=== PATIENT | male | born 1995 | race Caucasian/White ===

== ENCOUNTER → 2021-08-10 | Outpatient (CLI) | payer OTHER ==
[2021-08-11 04:51] LABS: African American GFR (CKD) 143.9 (60.0-200.0); Albumin 4.9 g/dL (3.8-4.9); Albumin/Globulin Ratio 1.88 (1.60-3.17); Anion Gap 15.1 mmol/L (4.00-12.00); BUN/Creat Ratio 18.63 Ratio (12.00-20.00); Blood Urea Nitrogen 14.9 mg/dL (9.0-27.0); Calcium 9.8 mg/dL (8.7-10.3); Carbon Dioxide 20.9 mmol/L (21.6-31.8); Globulin 2.6 g/dL (1.6-3.3); Non-African American GFR(CKD) 124.2 (60.0-200.0); Potassium 4.2 mmol/L (3.5-5.5); Total Bilirubin 0.3 mg/dL (0.30-1.20); Total Protein 7.5 g/dL (6.2-8.2)
== END | disposition home or self-care (01) ==
LOC: LABWHC1 16:05
PROVIDERS: ATTEND Psychologist Clinical
DX: Z79.891 Long term (current) use of opiate analgesic (principal)
CPT/HCPCS: 36415; 80053

== ENCOUNTER 2022-01-19 01:54 | Inpatient (IN) | payer OTHER ==
[2022-01-19] MEDS ORDERED: SODIUM CHLORIDE 0.9% 500 ML 500 ML IV STA (02:07)
[2022-01-19] MEDS ORDERED: SODIUM CHLORIDE 0.9% 1,000 ML IV STA ×2 (02:07)
[2022-01-19] MEDS ORDERED: ONDANSETRON 4 MG/2 ML VIAL IVP STA (02:07)
[2022-01-19] MEDS ORDERED: LORazepam 2 MG/ML INJ IV PRN ×2 (02:07)
[2022-01-19] MEDS ORDERED: LORazepam 2 MG/ML INJ IV STA (02:07)
--- NOTE | 2022-01-19 02:07 | ED ---
Alcohol HPI - General Stated Complaint: Vomiting, ETOH withdrawal Time Seen by Provider: 01/19/22 02:06 Source: RN notes reviewed, old records reviewed Mode of arrival: EMS Limitations: no limitations - History of Present Illness Initial Comments: This is a 26-year-old male DF for evaluation. Patient Dese for evaluation regards to persistent nausea vomiting. Patient presents from [place] where he is presenting for alcohol dependence. Patient has been vomiting persistently unable to keep down medications and sent ER for further evaluation management. Sadness patient has no complaints no chest pain shortness breath abdominal pain no fevers MD Complaint: alcohol intoxication, alcohol withdrawal Last Drink: just [employer] -: hour(s) Previous Visits for Alcohol Intoxication?: No Recent Trauma: No Associated Symptoms: nausea, vomiting, depression Treatments Prior to Arrival: none Chronic Alcohol Use: Yes - Related Data Allergies Allergy/AdvReac Type Severity Reaction Status Date / Time No Known Allergies Allergy Verified 01/19/22 02:33 Review of Systems ROS Statement: Those systems with pertinent positive or pertinent negative responses have been documented in the HPI. ROS Other: All systems not noted in ROS Statement are negative. General Exam General appearance: alert, in no apparent distress Head exam: Present: atraumatic, normocephalic, normal inspection Eye exam: Present: normal appearance, PERRL, EOMI. Absent: scleral icterus, conjunctival injection, periorbital swelling ENT exam: Present: normal exam, mucous membranes moist Neck exam: Present: normal inspection. Absent: tenderness, meningismus, lymphadenopathy Respiratory exam: Present: normal lung sounds bilaterally. Absent: respiratory distress, wheezes, rales, rhonchi, stridor Cardiovascular Exam: Present: regular rate, normal rhythm, normal heart sounds. Absent: systolic murmur, diastolic murmur, rubs, gallop, clicks GI/Abdominal exam: Present: soft, normal bowel sounds. Absent: distended, tenderness, guarding, rebound, rigid Extremities exam: Present: normal inspection, full ROM, normal capillary refill. Absent: tenderness, pedal edema, joint swelling, calf tenderness Back exam: Present: normal inspection Neurological exam: Present: alert, oriented X3, CN II-XII intact Psychiatric exam: Present: normal affect, normal mood Skin exam: Present: warm, dry, intact, normal color. Absent: rash Course Vital Signs 01/19/22 01/19/22 01/19/22 02:12 03:30 04:16 Temperature 98.4 F Pulse Rate 77 75 76 Respiratory 19 16 16 Rate Blood Pressure 132/84 124/80 125/75 O2 Sat by Pulse 99 98 98 Oximetry 01/19/22 06:02 Temperature Pulse Rate 76 Respiratory 16 Rate Blood Pressure 127/76 O2 Sat by Pulse 98 Oximetry - Reevaluation(s) Reevaluation #1: 01/19/22 06:19 Medical record is reviewed Reevaluation #2: 01/19/22 06:19 Patient symptoms are improved here in the ER Reevaluation #3: 01/19/22 06:19 Patient informed results and questions answered - Consultations Consultation #1: Spoke with JONATAN to agrees to admit this patient Medical Decision Making - Medical Decision Making 26 male to the emergency department for evaluation persistent nausea vomiting with alcohol withdrawal. Patient symptoms are improving currently resting comfortable with. Patient be admitted for further monitoring - Lab Data Result diagrams: 01/19/22 02:42 01/19/22 02:42 Lab Results 01/19/22 01/19/22 Range/Units 02:42 02:42 WBC 8.8 (3.8-10.6) k/uL RBC 5.23 (4.30-5.90) m/uL Hgb 16.1 (13.0-17.5) gm/dL Hct 45.1 (39.0-53.0) % MCV 86.4 (80.0-100.0) fL MCH 30.9 (25.0-35.0) pg MCHC 35.8 (31.0-37.0) g/dL RDW 12.9 (11.5-15.5) % Plt Count 117 L (150-450) k/uL MPV 6.7 Neutrophils % 82 % Lymphocytes % 11 % Monocytes % 5 % Eosinophils % 1 % Basophils % 1 % Neutrophils # 7.2 (1.3-7.7) k/uL Lymphocytes # 0.9 L (1.0-4.8) k/uL Monocytes # 0.4 (0-1.0) k/uL Eosinophils # 0.1 (0-0.7) k/uL Basophils # 0.1 (0-0.2) k/uL Sodium 135 L (137-145) mmol/L Potassium 3.9 (3.5-5.1) mmol/L Chloride 99 (98-107) mmol/L Carbon Dioxide 24 (22-30) mmol/L Anion Gap 12 mmol/L BUN 12 (9-20) mg/dL Creatinine 0.83 (0.66-1.25) mg/dL Est GFR (CKD-EPI)AfAm >90 (>60 ml/min/1.73 sqM) Est GFR (CKD-EPI)NonAf >90 (>60 ml/min/1.73 sqM) Glucose 124 H (74-99) mg/dL Calcium 9.4 (8.4-10.2) mg/dL Phosphorus 3.6 (2.5-4.5) mg/dL Magnesium 1.7 (1.6-2.3) mg/dL Total Bilirubin 1.5 H (0.2-1.3) mg/dL AST 223 H (17-59) U/L ALT 224 H (4-49) U/L Alkaline Phosphatase 107 (38-126) U/L Total Protein 8.3 H (6.3-8.2) g/dL Albumin 4.9 (3.5-5.0) g/dL Lipase 53 (23-300) U/L Serum Alcohol <10 mg/dL Disposition Clinical Impression: Alcohol withdrawal syndrome, Alcoholic hepatitis, Nausea & vomiting Disposition: ADMITTED IP TO THIS HOSP Condition: Good Is patient prescribed a controlled substance at d/c from ED?: No
[2022-01-19] MEDS ORDERED: THIAMINE 100 MG/ML 2 ML VIAL IM ONE (02:15)
[2022-01-19 02:54] LABS: Basophils # (A) 0.1 k/uL (0-0.2); Basophils % (A) 1 %; Eosinophils # (A) 0.1 k/uL (0-0.7); Eosinophils % (A) 1 %; HCT 45.1 % (39.0-53.0); HGB 16.1 gm/dL (13.0-17.5); Lymphocytes # (A) 0.9 k/uL (1.0-4.8); Lymphocytes % (A) 11 %; MCH 30.9 pg (25.0-35.0); MCHC 35.8 g/dL (31.0-37.0); MCV 86.4 fL (80.0-100.0); Mean Platelet Volume 6.7; Monocytes # (A) 0.4 k/uL (0-1.0); Monocytes % (A) 5 %; Neutrophils # (A) 7.2 k/uL (1.3-7.7); Neutrophils % (A) 82 %; Platelet Count 117 k/uL (150-450); RBC 5.23 m/uL (4.30-5.90); RDW 12.9 % (11.5-15.5); WBC 8.8 k/uL (3.8-10.6)
[2022-01-19 03:04] LABS: ALT 224 U/L (4-49); AST 223 U/L (17-59); African American GFR (CKD) >90 (>60 ml/min/1.73 sqM); Albumin 4.9 g/dL (3.5-5.0); Alcohol <10 mg/dL; Alkaline Phosphatase 107 U/L (38-126); Anion Gap 12 mmol/L; Blood Urea Nitrogen 12 mg/dL (9-20); Calcium 9.4 mg/dL (8.4-10.2); Carbon Dioxide 24 mmol/L (22-30); Chloride 99 mmol/L (98-107); Glucose 124 mg/dL (74-99); Lipase 53 U/L (23-300); Magnesium 1.7 mg/dL (1.6-2.3); Non-African American GFR(CKD) >90 (>60 ml/min/1.73 sqM); Phosphorus 3.6 mg/dL (2.5-4.5); Potassium 3.9 mmol/L (3.5-5.1); Sodium 135 mmol/L (137-145); Total Bilirubin 1.5 mg/dL (0.2-1.3); Total Protein 8.3 g/dL (6.3-8.2)
[2022-01-19] MEDS ORDERED: NALOXONE 0.4 MG/ML 1 ML VIAL IV PRN (03:42)
[2022-01-19] MEDS: SODIUM CHLORIDE 0.9% 1,000 ML IV SCH ×2 (04:16→16:41)
[2022-01-19] MEDS: ONDANSETRON 4 MG/2 ML VIAL IVP PRN (16:41)
[2022-01-19] MEDS: LORazepam 2 MG/ML INJ IV PRN ×2 (16:41→21:57)
--- NOTE | 2022-01-19 17:40 | P.HPIM ---
History of Present Illness H&P Date: 01/19/22 Chief Complaint: Vomiting/EtOH withdrawal 26-year-old male DF for evaluation. Patient Dese for evaluation regards to persistent nausea vomiting. Patient presents from [place] where he is presenting for alcohol dependence. Patient has been vomiting persistently unable to keep down medications and sent ER for further evaluation management. Sadness patient has no complaints no chest pain shortness breath abdominal pain no fevers Workup in ED reveals WBC of 3.8, hemoglobin 16.1, platelet count of 117, sodium 135, potassium 3.9, BUN/creatinine of 12/0.83 and blood glucose of 124 Hepatic function panel reveals AST of 23, ALT of 224, total bilirubin of 1.5; blood alcohol of less than 10 Review of Systems REVIEW OF SYSTEMS: CONSTITUTIONAL: No fever, no malaise, no fatigue. HEENT: No recent visual problems or hearing problems. Denied any sore throat. CARDIOVASCULAR: No chest pain, orthopnea, PND, no palpitations, no syncope. PULMONARY: No shortness of breath, no cough, no hemoptysis. GASTROINTESTINAL: No diarrhea, no nausea, no vomiting, no abdominal pain. NEUROLOGICAL: No headaches, no weakness, no numbness. HEMATOLOGICAL: Denies any bleeding or petechiae. GENITOURINARY: Denies any burning micturition, frequency, or urgency. MUSCULOSKELETAL/RHEUMATOLOGICAL: Denies any joint pain, swelling, or any muscle pain. ENDOCRINE: Denies any polyuria or polydipsia. The rest of the 14-point review of systems is negative. Past Medical History Past Medical History: No Reported History History of Any Multi-Drug Resistant Organisms: None Reported Past Surgical History: No Surgical Hx Reported Past Psychological History: ADD/ADHD, Anxiety, Depression Smoking Status: Current some day smoker Past Alcohol Use History: Daily Additional Past Alcohol Use History / Comment(s): patient went to [facility] 01/18/22, was sent via ems to [facility] for withdrawl symptoms Past Drug Use History: Marijuana - Past Family History Mother Additional Family Medical History / Comment(s): diverticulitis Father Family Medical History: Hypertension Medications and Allergies Home Medications Medication Instructions Recorded Confirmed Type LORazepam [Ativan] 1 - 2 mg PO Q4H PRN 01/19/22 01/19/22 History ondansetron HCL [Zofran] 8 mg PO Q6H PRN 01/19/22 01/19/22 History Allergies Allergy/AdvReac Type Severity Reaction Status Date / Time No Known Allergies Allergy Verified 01/19/22 02:33 Physical Exam Vitals: Vital Signs Temp Pulse Pulse Resp BP BP Pulse Ox 01/19/22 11:13 65 16 129/77 99 01/19/22 06:02 76 16 127/76 98 01/19/22 04:16 76 16 125/75 98 01/19/22 03:30 75 16 124/80 98 01/19/22 02:12 98.4 F 77 19 132/84 99 Intake and Output 01/18/22 01/19/22 01/19/22 22:59 06:59 14:59 Other: # Voids 1 Weight 86.581 kg 86.581 kg - Constitutional General appearance: Present: average body habitus, cooperative, no acute distress - EENT Eyes: Present: anicteric sclerae, EOMI, PERRLA, normal appearance ENT: Present: hearing grossly normal, normal oropharynx Ears: bilateral: normal - Neck Neck: Present: normal ROM. Absent: lymphadenopathy, rigidity, thyromegaly Carotids: negative: bruit present Thyroid: bilateral: normal size, negative: enlarged, nodule - Respiratory Respiratory: bilateral: CTA, negative: rales, rhonchi, wheezing - Cardiovascular Rhythm: regular Heart sounds: normal: S1, S2 Abnormal Heart Sounds: Absent: systolic murmur, diastolic murmur - Gastrointestinal General gastrointestinal: Present: normal bowel sounds, soft. Absent: distend ed, organomegaly, tenderness - Genitourinary Genitourinary Comment(s): deferred - Integumentary Integumentary: Present: normal turgor. Absent: jaundiced, rash, ulcer - Neurologic Neurologic: Present: CNII-XII intact. Absent: focal deficits - Musculoskeletal Musculoskeletal: Present: gait normal, strength equal bilaterally - Psychiatric Psychiatric: Present: A&O x's 3, appropriate affect, intact judgment & insight Results CBC & Chem 7: 01/19/22 02:42 01/19/22 02:42 Labs: Abnormal Lab Results - Last 24 Hours (Table) 01/19/22 01/19/22 Range/Units 02:42 02:42 Plt Count 117 L (150-450) k/uL Lymphocytes # 0.9 L (1.0-4.8) k/uL Sodium 135 L (137-145) mmol/L Glucose 124 H (74-99) mg/dL Total Bilirubin 1.5 H (0.2-1.3) mg/dL AST 223 H (17-59) U/L ALT 224 H (4-49) U/L Total Protein 8.3 H (6.3-8.2) g/dL Thrombosis Risk Factor Assmnt - Choose All That Apply Any of the Below Risk Factors Present?: No Assessment and Plan Assessment: 1. Alcohol withdrawal syndrome; patient reporting intractable nausea and vomiting; we will treat symptomatically; IV fluid hydration; thiamine 100 mg daily; start patient on Protonix 40 mg daily; patient has been placed on CIWA protocol with Ativan 2. Alcoholic hepatitis; we will monitor liver enzymes closely; we will initiate further workup if liver enzymes continue to trend 3. Intractable nausea and vomiting; likely related to EtOH withdrawal; IV fluid hydration as indicated above; Protonix 40 mg IV daily; symptomatic treatment with IV Phenergan DVT prophylaxis; SCDs CODE STATUS; full code
[2022-01-19] MEDS: THIAMINE 100 MG TAB PO SCH (17:46)
[2022-01-20] MEDS ORDERED: IBUPROFEN 400 MG TAB PO PRN (02:05)
[2022-01-20] MEDS: SODIUM CHLORIDE 0.9% 1,000 ML IV SCH ×3 (03:25→13:40)
[2022-01-20] MEDS: ONDANSETRON 4 MG/2 ML VIAL IVP PRN (03:25)
[2022-01-20] MEDS: THIAMINE 100 MG TAB PO SCH ×2 (07:19→17:27)
[2022-01-20 11:56] LABS: African American GFR (CKD) 142.5 (60.0-200.0); Albumin 4.4 g/dL (3.8-4.9); Albumin/Globulin Ratio 1.78 (1.60-3.17); Anion Gap 13.8 mmol/L (10.00-18.00); BUN/Creat Ratio 14.64 Ratio (12.00-20.00); Bilirubin, Conjugated 0.25 mg/dL (0.20-0.40); Bilirubin,Unconjugated 0.68 mg/dL (0.20-1.00); Blood Urea Nitrogen 11.8 mg/dL (9.0-27.0); Calcium 9.1 mg/dL (8.7-10.3); Carbon Dioxide 21.6 mmol/L (20.0-27.5); Globulin 2.5 g/dL (1.6-3.3); Non-African American GFR(CKD) 122.9 (60.0-200.0); Total Bilirubin 0.9 mg/dL (0.30-1.20); Total Protein 6.9 g/dL (6.2-8.2)
[2022-01-20 12:55] LABS: Basophils # (A) 0.01 X 10*3/uL (0.00-0.10); Basophils % (A) 0.2 %; Eosinophils # (A) 0.12 X 10*3/uL (0.04-0.35); Eosinophils % (A) 2.3 %; HCT 44.6 % (39.6-50.0); HGB 15.3 g/dL (13.0-17.0); Immature Grans, Automated 0.2 %; Lymphocytes # (A) 1.27 X 10*3/uL (0.90-5.00); Lymphocytes % (A) 24.3 %; MCH 29.6 pg (27.0-32.0); MCHC 34.3 g/dL (32.0-37.0); MCV 86.3 fL (80.0-97.0); Mean Platelet Volume 10.5 fL (9.5-12.2); Monocytes # (A) 0.54 X 10*3/uL (0.20-1.00); Monocytes % (A) 10.3 %; NRBC Per 100 WBC 0 /100 WBCS (0.0-0.0); Neutrophils # (A) 3.27 X 10*3/uL (1.80-7.70); Neutrophils % (A) 62.7 %; Platelet Count 94 X 10*3/uL (140-440); RBC 5.17 X 10*6/uL (4.40-5.60); RDW 13.2 % (11.5-14.5); WBC 5.22 X 10*3/uL (4.50-10.00)
[2022-01-20 12:56] LABS: RBC Morphology NORMAL
[2022-01-20] MEDS: LORazepam 2 MG/ML INJ IV PRN ×3 (15:40→22:50)
[2022-01-20] MEDS: NICOTINE 14MG/24HR PATCH TRANSDERM SCH (20:29)
[2022-01-21] MEDS: SODIUM CHLORIDE 0.9% 1,000 ML IV SCH ×2 (06:36→10:42)
[2022-01-21] MEDS: THIAMINE 100 MG TAB PO SCH (08:38)
[2022-01-21] MEDS: NICOTINE 14MG/24HR PATCH TRANSDERM SCH (08:41)
[2022-01-21] MEDS: LORazepam 2 MG/ML INJ IV PRN ×2 (08:44→12:44)
[2022-01-21 12:59] LABS: Basophils % (A) 1 %; Eosinophils # (A) 0.1 k/uL (0-0.7); Eosinophils % (A) 2 %; HCT 46.5 % (39.0-53.0); HGB 16.2 gm/dL (13.0-17.5); Lymphocytes # (A) 1.5 k/uL (1.0-4.8); Lymphocytes % (A) 26 %; MCH 30.8 pg (25.0-35.0); MCHC 34.7 g/dL (31.0-37.0); MCV 88.7 fL (80.0-100.0); Mean Platelet Volume 7.7; Monocytes # (A) 0.5 k/uL (0-1.0); Monocytes % (A) 8 %; Neutrophils # (A) 3.5 k/uL (1.3-7.7); Neutrophils % (A) 60 %; Platelet Count 105 k/uL (150-450); RBC 5.24 m/uL (4.30-5.90); RDW 13.8 % (11.5-15.5); WBC 5.9 k/uL (3.8-10.6)
[2022-01-21 13:16] LABS: ALT 204 U/L (4-49); AST 153 U/L (17-59); African American GFR (CKD) >90 (>60 ml/min/1.73 sqM); Albumin 4.7 g/dL (3.5-5.0); Albumin/Globulin Ratio 1.5; Alkaline Phosphatase 83 U/L (38-126); Anion Gap 6 mmol/L; Bilirubin,Unconjugated 0.7 mg/dL (0.0-1.1); Blood Urea Nitrogen 15 mg/dL (9-20); Calcium 9.4 mg/dL (8.4-10.2); Carbon Dioxide 27 mmol/L (22-30); Chloride 105 mmol/L (98-107); Globulin 3.2 g/dL; Glucose 104 mg/dL (74-99); Non-African American GFR(CKD) >90 (>60 ml/min/1.73 sqM); Potassium 4.2 mmol/L (3.5-5.1); Sodium 138 mmol/L (137-145); Total Protein 7.9 g/dL (6.3-8.2)
[2022-01-21 14:18] VITALS: BP 139/80; PULSE 88; RESP 17; TEMP 96.9
--- NOTE | 2022-01-21 15:33 | P.PN ---
Subjective Progress Note Date: 01/20/22 Principal diagnosis: EtOH intoxication/withdrawal 26-year-old male DF for evaluation. Patient Dese for evaluation regards to persistent nausea vomiting. Patient presents from [place] where he is presenting for alcohol dependence. Patient has been vomiting persistently un able to keep down medications and sent ER for further evaluation management. Sadness patient has no complaints no chest pain shortness breath abdominal pain no fevers Workup in ED reveals WBC of 3.8, hemoglobin 16.1, platelet count of 117, sodium 135, potassium 3.9, BUN/creatinine of 12/0.83 and blood glucose of 124 Hepatic function panel reveals AST of 23, ALT of 224, total bilirubin of 1.5; blood alcohol of less than 10 Objective - Vital Signs Vital signs: Vital Signs Temp 98.3 F 01/20/22 07:45 Pulse 90 01/20/22 07:45 Resp 12 01/20/22 07:45 BP 127/75 01/20/22 07:45 Pulse Ox 98 01/20/22 07:45 Intake & Output 01/19/22 01/20/22 01/20/22 18:59 06:59 18:59 Weight 86.581 kg Other: Voiding Method Toilet # Voids 1 3 # Bowel Movements 0 - Exam - Constitutional General appearance: Present: average body habitus, cooperative, no acute dis tress - EENT Eyes: Present: anicteric sclerae, EOMI, PERRLA, normal appearance ENT: Present: hearing grossly normal, normal oropharynx Ears: bilateral: normal - Neck Neck: Present: normal ROM. Absent: lymphadenopathy, rigidity, thyromegaly Carotids: negative: bruit present Thyroid: bilateral: normal size, negative: enlarged, nodule - Respiratory Respiratory: bilateral: CTA, negative: rales, rhonchi, wheezing - Cardiovascular Rhythm: regular Heart sounds: normal: S1, S2 Abnormal Heart Sounds: Absent: systolic murmur, diastolic murmur - Gastrointestinal General gastrointestinal: Present: normal bowel sounds, soft. Absent: distended, organomegaly, tenderness - Genitourinary Genitourinary Comment(s): deferred - Integumentary Integumentary: Present: normal turgor. Absent: jaundiced, rash, ulcer - Neurologic Neurologic: Present: CNII-XII intact. Absent: focal deficits - Musculoskeletal Musculoskeletal: Present: gait normal, strength equal bilaterally - Psychiatric Psychiatric: Present: A&O x's 3, appropriate affect, intact judgment & insight - Labs CBC & Chem 7: 01/21/22 12:27 01/21/22 12:27 Labs: Abnormal Lab Results - Last 24 Hours (Table) 01/20/22 Range/Units 07:16 AST 149 H (14-35) U/L ALT 187 H (10-49) U/L Assessment and Plan Assessment: 1. Alcohol withdrawal syndrome; patient reporting intractable nausea and vomiting; we will treat symptomatically; IV fluid hydration; thiamine 100 mg daily; start patient on Protonix 40 mg daily; patient has been placed on CIWA protocol with Ativan 2. Alcoholic hepatitis; we will monitor liver enzymes closely; we will initiate further workup if liver enzymes continue to trend 3. Intractable nausea and vomiting; likely related to EtOH withdrawal; IV fluid hydration as indicated above; Protonix 40 mg IV daily; symptomatic treatment with IV Phenergan DVT prophylaxis; SCDs CODE STATUS; full code
== END 2022-01-21 17:01 | disposition home or self-care (01) | DRG 897 ==
LOC: EC 01:54 → 4SSUR 03:42
PROVIDERS: ADMIT Hospitalist; ATTEND Hospitalist
DX: F10.239 Alcohol dependence with withdrawal, unspecified (principal); F10.229 Alcohol dependence with intoxication, unspecified; F17.200 Nicotine dependence, unspecified, uncomplicated; F32.A Depression, unspecified; F41.9 Anxiety disorder, unspecified; F90.9 Attention-deficit hyperactivity disorder, unspecified type; K70.10 Alcoholic hepatitis without ascites; Z82.49 Family history of ischemic heart disease and other diseases of the circulatory system
CPT/HCPCS: 36415; 80048; 80053; 80076; 80320; 82248; 83690; 83735; 84100; 85025; 96361; 96372; 96374; 96375; 96376; 99285

== ENCOUNTER 2022-10-15 14:06 | Emergency (ER) | payer OTHER ==
[2022-10-15] MEDS ORDERED: FOLIC ACID 1 MG TAB PO STA (14:13)
[2022-10-15] MEDS ORDERED: POTASSIUM CHLORIDE ER 20 MEQ TAB.ER PO STA (14:13)
[2022-10-15] MEDS ORDERED: SODIUM CHLORIDE 0.9% 1,000 ML IV STA (14:13)
[2022-10-15] MEDS ORDERED: MULTIVITAMINS, THERA 1 EACH TAB PO STA (14:13)
[2022-10-15] MEDS ORDERED: THIAMINE 100 MG/ML 2 ML VIAL IM STA (14:13)
[2022-10-15] MEDS ORDERED: MAGNESIUM SULFATE-D5W PMX 1 GM in DEXTROSE/WATER 1 100ML.BAG IVPB STA (14:13)
--- NOTE | 2022-10-15 14:15 | ED ---
Alcohol HPI - General Stated Complaint: ETOH Time Seen by Provider: 10/15/22 14:08 - History of Present Illness Initial Comments: Patient presents to the emergency department for alcohol intoxication. He denies any injuries. He has no weakness. He has no paresthesias. He has no headache. He has no neck pain or stiffness. He has no belly or back pain. He has no vomiting. He has had no blood in the stool or black or tarry stool. - Related Data Home Medications Medication Instructions Recorded Confirmed No Known Home Medications 10/15/22 10/15/22 Allergies Allergy/AdvReac Type Severity Reaction Status Date / Time No Known Allergies Allergy Verified 10/15/22 15:16 Review of Systems ROS Statement: Those systems with pertinent positive or pertinent negative responses have been documented in the HPI. ROS Other: All systems not noted in ROS Statement are negative. Past Medical History Past Medical History: No Reported History History of Any Multi-Drug Resistant Organisms: None Reported Past Surgical History: No Surgical Hx Reported Past Psychological History: ADD/ADHD, Anxiety, Depression Smoking Status: Current some day smoker Past Alcohol Use History: Daily Additional Past Alcohol Use History / Comment(s): patient went to [place] 01/18/22, was sent via ems to [facility] for withdrawl symptoms Past Drug Use History: Marijuana - Past Family History Mother Additional Family Medical History / Comment(s): diverticulitis Father Family Medical History: Hypertension General Exam General appearance: alert, in no apparent distress Head exam: Present: atraumatic, normocephalic, normal inspection Eye exam: Present: normal appearance, PERRL, EOMI. Absent: scleral icterus, conjunctival injection, periorbital swelling ENT exam: Present: normal exam, mucous membranes moist Neck exam: Present: normal inspection. Absent: tenderness, meningismus, lym phadenopathy Respiratory exam: Present: normal lung sounds bilaterally. Absent: respiratory distress, wheezes, rales, rhonchi, stridor Cardiovascular Exam: Present: regular rate, normal rhythm, normal heart sounds. Absent: systolic murmur, diastolic murmur, rubs, gallop, clicks GI/Abdominal exam: Present: soft, normal bowel sounds. Absent: distended, tenderness, guarding, rebound, rigid Extremities exam: Present: normal inspection, full ROM, normal capillary refill. Absent: tenderness, pedal edema, joint swelling, calf tenderness Back exam: Present: normal inspection Neurological exam: Present: alert, oriented X3, CN II-XII intact Psychiatric exam: Present: normal affect, normal mood Skin exam: Present: warm, dry, intact, normal color. Absent: rash Course Vital Signs 10/15/22 14:36 Temperature 98.0 F Pulse Rate 108 H Respiratory 18 Rate Blood Pressure 141/92 O2 Sat by Pulse 97 Oximetry Medical Decision Making - Medical Decision Making Patient presented for acute alcohol intoxication. He has no neurological deficits. His physical exam is unremarkable. There is no evidence of injury. Vital signs are normal. Laboratory studies interpreted by me showing elevated alcohol level. I did want to keep the patient emerge department for further evaluation, however I was informed by nursing that he left without completing treatment. - Lab Data Result diagrams: 10/15/22 14:30 10/15/22 14:30 Lab Results 10/15/22 10/15/22 Range/Units 14:30 14:30 WBC 7.5 (3.8-10.6) k/uL RBC 5.68 (4.30-5.90) m/uL Hgb 18.9 H (13.0-17.5) gm/dL Hct 51.3 (39.0-53.0) % MCV 90.3 (80.0-100.0) fL MCH 33.3 (25.0-35.0) pg MCHC 36.9 (31.0-37.0) g/dL RDW 13.2 (11.5-15.5) % Plt Count 330 (150-450) k/uL MPV 6.5 Neutrophils % 71 % Lymphocytes % 20 % Monocytes % 5 % Eosinophils % 1 % Basophils % 2 % Neutrophils # 5.4 (1.3-7.7) k/uL Lymphocytes # 1.5 (1.0-4.8) k/uL Monocytes # 0.4 (0-1.0) k/uL Eosinophils # 0.1 (0-0.7) k/uL Basophils # 0.2 (0-0.2) k/uL Sodium 144 (137-145) mmol/L Potassium 5.3 H (3.5-5.1) mmol/L Chloride 105 (98-107) mmol/L Carbon Dioxide 17 L (22-30) mmol/L Anion Gap 22 mmol/L BUN 8 L (9-20) mg/dL Creatinine 0.83 (0.66-1.25) mg/dL Est GFR (CKD-EPI)AfAm >90 (>60 ml/min/1.73 sqM) Est GFR (CKD-EPI)NonAf >90 (>60 ml/min/1.73 sqM) Glucose 106 H (74-99) mg/dL Calcium 9.5 (8.4-10.2) mg/dL Magnesium 2.3 (1.6-2.3) mg/dL Total Bilirubin 1.4 H (0.2-1.3) mg/dL AST 151 H (17-59) U/L ALT 165 H (4-49) U/L Alkaline Phosphatase 120 (38-126) U/L Total Protein 9.1 H (6.3-8.2) g/dL Albumin 5.4 H (3.5-5.0) g/dL Lipase 68 (23-300) U/L Serum Alcohol 325 H* mg/dL Disposition Clinical Impression: Alcoholic intoxication Disposition: HOME SELF-CARE Is patient prescribed a controlled substance at d/c from ED?: No Referrals: Nonstaff,Physician [Primary Care Provider] - 1-2 days
[2022-10-15 14:41] LABS: Basophils # (A) 0.2 k/uL (0-0.2); Basophils % (A) 2 %; Eosinophils # (A) 0.1 k/uL (0-0.7); Eosinophils % (A) 1 %; HCT 51.3 % (39.0-53.0); HGB 18.9 gm/dL (13.0-17.5); Lymphocytes # (A) 1.5 k/uL (1.0-4.8); Lymphocytes % (A) 20 %; MCH 33.3 pg (25.0-35.0); MCHC 36.9 g/dL (31.0-37.0); MCV 90.3 fL (80.0-100.0); Mean Platelet Volume 6.5; Monocytes # (A) 0.4 k/uL (0-1.0); Monocytes % (A) 5 %; Neutrophils # (A) 5.4 k/uL (1.3-7.7); Neutrophils % (A) 71 %; Platelet Count 330 k/uL (150-450); RBC 5.68 m/uL (4.30-5.90); RDW 13.2 % (11.5-15.5); WBC 7.5 k/uL (3.8-10.6)
[2022-10-15 14:43] VITALS: BP 141/92; PULSE 108; RESP 18; TEMP 98
[2022-10-15 14:58] LABS: ALT 165 U/L (4-49); AST 151 U/L (17-59); African American GFR (CKD) >90 (>60 ml/min/1.73 sqM); Albumin 5.4 g/dL (3.5-5.0); Alkaline Phosphatase 120 U/L (38-126); Anion Gap 22 mmol/L; Blood Urea Nitrogen 8 mg/dL (9-20); Calcium 9.5 mg/dL (8.4-10.2); Carbon Dioxide 17 mmol/L (22-30); Chloride 105 mmol/L (98-107); Glucose 106 mg/dL (74-99); Lipase 68 U/L (23-300); Magnesium 2.3 mg/dL (1.6-2.3); Non-African American GFR(CKD) >90 (>60 ml/min/1.73 sqM); Sodium 144 mmol/L (137-145); Total Bilirubin 1.4 mg/dL (0.2-1.3); Total Protein 9.1 g/dL (6.3-8.2)
[2022-10-15 15:08] LABS: Alcohol 325 mg/dL; Potassium 5.3 mmol/L (3.5-5.1)
== END 2022-10-15 15:54 | disposition home or self-care (01) ==
LOC: EC 14:06
DX: F10.129 Alcohol abuse with intoxication, unspecified (principal); F12.90 Cannabis use, unspecified, uncomplicated; F17.200 Nicotine dependence, unspecified, uncomplicated; Y90.8 Blood alcohol level of 240 mg/100 ml or more
CPT/HCPCS: 99284; 96365; 96372; 36415; 80053; 83690; 83735; 85025; G0480; J3411; J3475; 80320